=== PATIENT | female | born 1965 | race Asian ===

== ENCOUNTER 2018-08-22 08:11 | Emergency (ER) | payer BC ==
[2018-08-22] MEDS: TETRACAINE 0.5% 4 ML OPH BOTH EYES (08:31)
[2018-08-22] MEDS: FLUORESCEIN STRIP BOTH EYES (08:31)
== END 2018-08-22 08:45 | disposition home or self-care (01) ==
LOC: FTE 08:11
DX: H10.023 Other mucopurulent conjunctivitis, bilateral (principal); F17.210 Nicotine dependence, cigarettes, uncomplicated
CPT/HCPCS: 99283